=== PATIENT | male | born 1970 | race African-American/Black ===

== ENCOUNTER 2022-10-12 14:20 | Emergency (ER) | payer OTHER ==
[~2022-10-12] VITALS: Ht 193 cm; Wt 125.9 kg
[2022-10-12 14:23] VITALS: BP 129/66; PULSE 72; RESP 16; TEMP 98.4
[2022-10-12] MEDS ORDERED: OMEP10 PO (14:30)
[2022-10-12 15:11] LABS: COVID AG,FIA SOURCE NASOPHARYNGEAL
[2022-10-12 15:43] LABS: RAPID GROUP A STREP NEGATIVE (NEGATIVE)
[2022-10-12 15:44] LABS: INFLUENZA TYPE A NEGATIVE FOR TYPE A (NEGATIVE); INFLUENZA TYPE B NEGATIVE FOR TYPE B (NEGATIVE)
[2022-10-12] MEDS ORDERED: AMOX1TAB16 PO (16:35)
== END 2022-10-12 16:40 | disposition home or self-care (01) ==
LOC: EMS 14:22
DX: H66.92 Otitis media, unspecified, left ear (principal); Z20.822 Contact with and (suspected) exposure to COVID-19
CPT/HCPCS: 87430; 87804; 99283